=== PATIENT | male | born 1985 | race Caucasian/White ===

== ENCOUNTER 2018-01-11 06:31 | Inpatient (IN) | END 2018-01-13 10:40 | disposition left against medical advice (07) | DRG 975 ==

== ENCOUNTER 2018-05-08 06:24 | Observation (INO) | payer OTHER ==
[~2018-05-08] VITALS: Ht 188 cm; Wt 61.4 kg
[2018-05-08] MEDS ORDERED: CEFTRIAXONE 1 GM/50 ML (PMX) 50 ML IVPB STA (06:26)
[2018-05-08 06:36] VITALS: Ht 188 cm; Wt 61.4 kg
[2018-05-08] MEDS ORDERED: ONDANSETRON 4 MG INJ IV STA (07:00)
[2018-05-08] MEDS ORDERED: SODIUM CHLORIDE 0.9% 1L BAG IV* STA (07:00)
[2018-05-08] MEDS ORDERED: ELVI1TAB3 PO (07:02)
[2018-05-08] MEDS ORDERED: KETOROLAC 30 MG INJ IV STA (07:28)
[2018-05-08] MEDS ORDERED: POTASSIUM CHLORIDE (SR) 20 MEQ TAB PO STA (07:44)
[2018-05-08] MEDS ORDERED: ONDANSETRON 4 MG INJ IV PRN ×2 (09:00→11:00)
--- NOTE | 2018-05-08 09:40 | ERD ---
ER Documentation Chief Complaint Chief Complaint flu like symptoms x 4 days with n/v/d HPI Patient is a 33-year-old male with AIDS and liver failure who presents saying that he is having flulike symptoms. He was brought in by ambulance. He says that he is a hospice patient. He has had vomiting and diarrhea for the past 4 days. He had fevers of 103 at his [place] [facility]. He has had no treatment as of yet. He did not get a flu shot this year. He says that he had a cough and "can't piss". ROS All systems reviewed and are negative except as per history of present illness. Medications Home Meds Reported Medications Elviteg/Fe/Emtric/Tenofo Ala (Genvoya Tablet) 1 Each Tablet, 1 TAB PO DAILY 05/08/18 Allergies Allergies: Coded Allergies: acetaminophen (Verified Allergy, Unknown, 05/08/18) hydrocodone (Verified Allergy, Unknown, 05/08/18) PMhx/Soc History of Surgery: No Anesthesia Reaction: No Hx Neurological Disorder: Yes (SEIZURE.) Hx Respiratory Disorders: No Hx Cardiac Disorders: Yes (ENDOCARDITIS.) Hx Psychiatric Problems: No Hx Miscellaneous Medical Probl: Yes (HIV AIDS, liver failure) Hx Alcohol Use: Yes (occasional) Hx Substance Use: Yes (MARIJUANA AND METHADONE; last used heroin x months ago) Hx Tobacco Use: Yes (2 PACKS /DAY) Smoking Status: Current every day smoker FmHx Family History: No diabetes Physical Exam Vitals Vital Signs Date Temp Pulse Resp B/P (MAP) Pulse Ox O2 O2 Flow FiO2 Time Delivery Rate 05/08/18 76 20 107/83 100 Room Air 08:40 (91) 05/08/18 87 17 90/59 (69) 100 Room Air 07:21 05/08/18 97.5 84 17 114/86 100 06:36 (95) Physical Exam Const: Chronically ill with cachexia Head: Atraumatic Eyes: Normal Conjunctiva ENT: Normal External Ears, Nose and Mouth. Neck: Full range of motion. No meningismus. Resp: Clear to auscultation bilaterally Cardio: Regular rate and rhythm, no murmurs Abd: Soft, non tender, non distended. Normal bowel sounds Skin: No petechiae or rashes Back: No midline or flank tenderness Ext: No cyanosis, or edema Neur: Awake and alert Psych: Normal Mood and Affect Result Diagram: 05/08/18 0645 05/08/18 0645 Results 24 hrs Laboratory Tests Test 05/08/18 06:45 05/08/18 06:46 05/08/18 08:40 White Blood Count 2.1 10^3/ul Red Blood Count 4.00 10^6/ul Hemoglobin 10.3 g/dl Hematocrit 32.4 % Mean Corpuscular Volume 81.0 fl Mean Corpuscular Hemoglobin 25.8 pg Mean Corpuscular Hemoglobin Concent 31.8 g/dl Red Cell Distribution Width 15.5 % Platelet Count 233 10^3/UL Mean Platelet Volume 9.7 fl Immature Granulocytes % 1.400 % Neutrophils % % Segmented Neutrophils % (Manual) 25 % Band Neutrophils % (Manual) 21 % Lymphocytes % (Manual) 28 % Monocytes % (Manual) 18 % Eosinophils % % Metamyelocytes % (manual) 4 % Myelocytes % (Manual) 1 % Promyelocytes % (Manual) 1 % Plasma Cells % (manual) 2 % Nucleated Red Blood Cells % 1 % Immature Granulocytes # 0.030 10^3/ul Neutrophils # 10^3/ul Neutrophils # (Manual) 0.5 10^3/ul Band Neutrophils # 0.4 10^3/ul Lymphocytes (Manual) 0.5 10^3/ul Monocytes # (Manual) 0.3 10^3/ul Eosinophils # 10^3/ul Metamyelocytes # 0.0 10^3/ul Myelocytes # 0.0 10^3/ul Promyelocytes # 0.0 10^3/ul Plasma Cells # (manual) 0.0 10^3/ul Toxic Granulation 1+ Platelet Estimate NORMAL Giant Platelets 3 % Polychromasia 3+ Poikilocytosis 3+ Anisocytosis 1+ Microcytosis 1+ Ovalocytes 1+ Prothrombin Time 14.1 Sec Prothrombin Time Ratio 1.1 INR International Normalized Ratio 1.08 Activated Partial Thromboplast Time 29.7 Sec Sodium Level 137 mmol/L Potassium Level 3.4 mmol/L Chloride Level 92 mmol/L Carbon Dioxide Level 32 mmol/L Anion Gap 13 Blood Urea Nitrogen 33 mg/dl Creatinine 0.77 mg/dl Est Glomerular Filtrat Rate mL/min > 60 mL/min Glucose Level 147 mg/dl Calcium Level 10.2 mg/dl Total Bilirubin 0.7 mg/dl Direct Bilirubin 0.00 mg/dl Indirect Bilirubin 0.7 mg/dl Aspartate Amino Transf (AST/SGOT) 49 IU/L Alanine Aminotransferase (ALT/SGPT) 20 IU/L Alkaline Phosphatase 159 IU/L Troponin I < 0.012 ng/ml Total Protein 9.1 g/dl Albumin 4.0 g/dl Globulin 5.10 g/dl Albumin/Globulin Ratio 0.78 POC Venous Lactate 2.2 mmol/L 1.6 mmol/L Current Medications Medications Dose Sig/Nilesh Start Time Status Last (Trade) Ordered Route PRN Stop Time Admin Dose Reason Admin Ceftriaxone 50 ml @ ONCE STAT 05/08/18 DC 05/08/18 Sodium 100 mls/hr IVPB 06:26 05/08/18 07:16 06:55 Sodium 1,840 ml BOLUS OVER 2 05/08/18 DC 05/08/18 Chloride HOURS STAT 07:00 05/08/18 07:17 (NS) IV* 07:01 Ondansetron 4 mg ONCE STAT 05/08/18 DC 05/08/18 HCl (Zofran IV 07:00 05/08/18 07:16 Inj) 07:01 Ketorolac 30 mg ONCE STAT 05/08/18 DC 05/08/18 Tromethamine IV 07:28 05/08/18 07:34 (Toradol) 07:29 Potassium 40 meq ONCE STAT 05/08/18 DC 05/08/18 Chloride PO 07:44 05/08/18 07:58 (Klor-Con 20) 07:47 Ondansetron 4 mg BRIDGE ORDER 05/08/18 HCl (Zofran PRN IV 09:00 05/09/18 Inj) NAUSEA AND/OR 08:59 VOMITING Procedures/MDM CT abdomen and pelvis is pending at this time. Chest x-ray shows no pneumonia per radiology. Patient is a 33-year-old male who has intractable nausea, vomiting, and diarrhea. He was given 30 mm/kg fluid bolus and was given ceftriaxone IV empirically. However at this point I see no signs of bacterial infection. His lactic acid is 2.2 but I doubt true sepsis at this time and I believe the lactic acid could be related to dehydration. The patient will be admitted to the care of Dr. Tijerina. Departure Diagnosis: Primary Impression: Nausea and vomiting Vomiting type: unspecified Vomiting Intractability: intractable Qualified Codes: R11.2 - Nausea with vomiting, unspecified Condition: KELLY Garcia MD May 08, 2018 09:40
[2018-05-08] MEDS ORDERED: NACL 0.9% 3 ML SYG IV SCH (11:00)
[2018-05-08] MEDS: SOD CHLORIDE 0.9% 1,000 ML IV SCH ×3 (11:21→23:09)
--- NOTE | 2018-05-08 12:17 | HP ---
Date/Time of Note Date/Time of Note DATE: 05/08/18 TIME: 12:10 Assessment/Plan VTE Prophylaxis SCD applied (from Nsg): Yes Pharmacological prophylaxis: NA/contraindicated Pharm contraindication: anticoag not tolerated Lines/Catheters IV Catheter Type (from Nrsg): Saline Lock Assessment/Plan Hospital Course SUBJECTIVE: Lying in bed, no abdominal pain, no nausea or vomiting. Asking for food. OBJECTIVE: Vital signs-see below PHYSICAL EXAM: Constitutional: Cachectic, frail looking 33-year-old male, lying in bed, no acute distress. Psych: Anxious. no complaints Head: atraumatic, normocephalic Eyes: nl conjunctiva, nl sclera ENMT: mucosa pink and moist, nl external ears & nose Neck: non-tender, supple Respiratory: + Rhonchi bilaterally. normal air movement Cardiovascular: nl pulses, regular rate and rhythm Gastrointestinal: non-tender, soft, bowel sounds active in all 4 quadrants. Musculoskeletal/extremities: + Muscle wasting. Nl extremities to inspection, motor strength equal bilaterally, no focal deficit. Normal pulses,no cyanosis, no edema. Neurological: Anxious looking. Alert oriented 3,nl speech, nl strength Skin: nl turgor ASSESSMENT/PLAN: Very unfortunate 33-year-old male with AIDS, endocarditis(treated recently), substance abuse, here with intractable nausea, vomiting, diarrhea. 1. Intractable vomiting/diarrhea, likely AIDS defining illness. -CT abdomen/pelvis with no acute obstruction or inflammatory conditions. -Stool specimen to rule out C. difficile=>-Empiric Flagyl -Supportive care with fluid hydration, [id number] Reglan, PRN Zofran,H2B, Lactobacillus for colon health. 2. Recurrent Pneumonia in HIV infected patient -Repeat chest x-ray with no significant interval changes. -Start patient on Levaquin 750 mg daily, added Bactrim for PCP prophylaxis. -PRN bronchodilators 3. End- Stage AIDS -Resume HAART regimen -ID consult -Patient interested in hospice as he was previously on hospice. I will request social worker masters. At this time, he wants to address full code. 4. Polysubstance abuse -SW eval 5. Chronic anemia -Stable. -Monitor 6. Tobacco abuse -Nicotine patch DVT prophylaxis: SCDs/ambulation PUD prophylaxis: Pepcid CODE STATUS: Full code Diet: Clear diet and advance as tolerated. Rest of the management depend on hospital course. Approximately 60 minutes was spent on this history and physical. Patient was seen in collaboration with Dr. Chase. Result Diagram: 05/08/18 0645 05/08/18 0645 Results 24hrs Laboratory Tests Test 05/08/18 06:45 05/08/18 06:46 05/08/18 08:40 05/08/18 11:11 White Blood Count 2.1 L Red Blood Count 4.00 #L Hemoglobin 10.3 #L Hematocrit 32.4 #L Mean Corpuscular Volume 81.0 L Mean Corpuscular 25.8 L Hemoglobin Mean Corpuscular 31.8 L Hemoglobin Concent Red Cell Distribution 15.5 H Width Platelet Count 233 # Mean Platelet Volume 9.7 Immature Granulocytes % 1.400 H Neutrophils % Segmented Neutrophils 25 L % (Manual) Band Neutrophils % 21 H (Manual) Lymphocytes % (Manual) 28 Monocytes % (Manual) 18 H Eosinophils % Metamyelocytes % 4 H (manual) Myelocytes % (Manual) 1 H Promyelocytes % (Manual) 1 H Plasma Cells % (manual) 2 Nucleated Red Blood 1 H Cells % Immature Granulocytes # 0.030 Neutrophils # Neutrophils # (Manual) 0.5 L Band Neutrophils # 0.4 Lymphocytes (Manual) 0.5 L Monocytes # (Manual) 0.3 Eosinophils # Metamyelocytes # 0.0 Myelocytes # 0.0 Promyelocytes # 0.0 Plasma Cells # (manual) 0.0 Toxic Granulation 1+ Platelet Estimate NORMAL Giant Platelets 3 H Polychromasia 3+ Poikilocytosis 3+ Anisocytosis 1+ Microcytosis 1+ Ovalocytes 1+ Prothrombin Time 14.1 Prothrombin Time Ratio 1.1 INR International 1.08 Normalized Ratio Activated 29.7 Partial Thromboplast Time Sodium Level 137 Potassium Level 3.4 L Chloride Level 92 L Carbon Dioxide Level 32 H Anion Gap 13 Blood Urea Nitrogen 33 H Creatinine 0.77 Est Glomerular Filtrat > 60 Rate mL/min Glucose Level 147 Calcium Level 10.2 Total Bilirubin 0.7 Direct Bilirubin 0.00 Indirect Bilirubin 0.7 Aspartate Amino 49 H Transf (AST/SGOT) Alanine 20 Aminotransferase (ALT/SG PT) Alkaline Phosphatase 159 H Troponin I < 0.012 Total Protein 9.1 H Albumin 4.0 Globulin 5.10 H Albumin/Globulin Ratio 0.78 POC Venous Lactate 2.2 *H 1.6 Lactic Acid Level 1.3 HPI/ROS Admit Date/Time Admit Date/Time May 08, 2018 at 08:37 Hx of Present Illness 33-year-old male with a history of AIDS, endocarditis, IV drug abuse, substance abuse, nicotine abuse, pneumonia/opportunistic infections, who was discharged AGAINST MEDICAL ADVICE in December 2017, presented with intractable nausea/vomiting/nonbloody diarrhea times 4-day duration. He also reported subjective fevers. Patient denied abdominal pain, loss of consciousness, dizziness, chest pain, palpitation, speech difficulties, vision changes, cough, dysuria, chills or other constitutional symptoms. In the emergency room,Initial labs showed white count 2100, hemoglobin 10.3, hematocrit 32.4, potassium 3.4, AST 49, alkaline phosphatase 159. Normal lactate level. Vital signs temperature 97.5, pulse rate 84, respiratory rate 17, blood pressure 114/86, oxygen saturation 100% on room air. In the ER, patient was given about 2 L normal saline fluid bolus, IV ceftriaxone and Zofran with some improvement in his symptoms. He was also given potassium 40 M EQ in the ER. ROS A 12 point review of system was assessed and is negative other than what is mentioned in the HPI. PMH/Family/Social Past Medical History See HPI Medications Current Medications Ondansetron HCl (Zofran Inj) 4 mg BRIDGE ORDER PRN IV NAUSEA AND/OR VOMITING; Start 05/08/18 at 09:00; Stop 05/09/18 at 08:59 Sodium Chloride 1,000 ml @ 125 mls/hr Q8H IV Last administered on 05/08/18at 11:21; Admin Dose 125 MLS/HR; Start 05/08/18 at 10:41 IV Flush (NS 3 ml) 3 ml PER PROTOCOL IV ; Start 05/08/18 at 11:00 Ondansetron HCl (Zofran Inj) 4 mg Q6H PRN IV NAUSEA AND/OR VOMITING; Start 05/08/18 at 11:00 Famotidine (Pepcid Iv) 20 mg Q12 IV ; Start 05/08/18 at 21:00 Ciprofloxacin/ Dextrose 200 ml @ 200 mls/hr Q12 IVPB ; Start 05/08/18 at 21:00 Metronidazole 100 ml @ 100 mls/hr Q8 IVPB ; Start 05/08/18 at 14:00 Metoclopramide HCl (Reglan) 10 mg Q6 IV ; Start 05/08/18 at 12:00 Elvitegravir/ Cobicis/Emtricit/ Tenof (Genvoya Tablet) 1 each DAILY PO ; Start 05/09/18 at 09:00 Coded Allergies: acetaminophen (Verified Allergy, Unknown, 05/08/18) hydrocodone (Verified Allergy, Unknown, 05/08/18) Past Surgical History Noncontributory Social History Current every day tobacco abuse, substance abuse Smoking Status: Current every day smoker Exam/Review of Systems Vital Signs Vitals Vital Signs Date Temp Pulse Resp B/P (MAP) Pulse Ox O2 O2 Flow FiO2 Time Delivery Rate 05/08/18 74 18 108/83 100 Room Air 09:40 (91) 05/08/18 97.5 06:36 JEAN-CLAUDE SKINNER NP May 08, 2018 12:17
[2018-05-08] MEDS ORDERED: ALBUTEROL/IPRATROPIUM (NEB) 3 ML AMP HHN PRN (12:30)
[2018-05-08] MEDS: METOCLOPRAMIDE 10 MG INJ IV SCH ×3 (13:09→23:05)
[2018-05-08] MEDS: LACTOBACILLUS RHAMNOSUS CAP PO SCH ×2 (13:10→21:11)
[2018-05-08] MEDS: LEVOFLOXACIN 750MG/D5W (PMX) 150 ML IVPB SCH (13:10)
[2018-05-08] MEDS: TRIMETHOPRIM/SULFAMETHOX (DS) TAB PO SCH ×2 (13:10→21:11)
--- NOTE | 2018-05-08 14:07 | CONS ---
DATE OF ADMISSION: 05/08/2018 DATE OF CONSULTATION: 05/08/2018 TYPE OF CONSULTATION: Infectious disease. REASON FOR CONSULTATION: Antibiotic management. HISTORY OF PRESENT ILLNESS: Feliciano Tinsley is a 33-year-old male who comes in with flu-like symptoms for 4 days with nausea, vomiting and diarrhea. The patient presents with flu-like illness. He says that he is a hospice patient. He had nausea, vomiting, diarrhea for the past 4 days with a fever of 103 degrees. He has had no treatment yet. He did not get a flu shot this year and he said that he h ad a cough and could not urinate. Past problems include: 1. AIDS. 2. Liver failure. 3. Seizure disorder. 4. Endocarditis. 5. Abuse of methadone and marijuana. Last used of heroin a number of months ago. 6. He is a smoker, smokes 2 packs per day. PAST MEDICAL HISTORY: Operations as outlined. FAMILY HISTORY: Noncontributory. SOCIAL HISTORY: He smokes. He abuses drugs and uses alcohol on occasion. ALLERGIES: 1. ACETAMINOPHEN. 2. HYDROCODONE. MEDICATIONS: Per chart. REVIEW OF SYSTEMS: Noncontributory. PHYSICAL EXAMINATION: GENERAL: The patient is a chronically ill, cachectic male, who is awake, responsive, in no acute dis tress. VITAL SIGNS: Stable. He is afebrile. SKIN: Without generalized rash. HEENT: Within normal limits. NECK: Supple. LYMPH NODES: None palpable. CHEST: Decreased breath sounds at the bases. HEART: Without murmur or gallop. ABDOMEN: Soft, nontender without organosplenomegaly or masses. EXTREMITIES: Without cyanosis, clubbing or edema. RECTAL AND GENITAL: Deferred. NEUROLOGIC: No focal neurological abnormalities. ANCILLARY LABORATORY DATA: White count 2.1, H and H of 10.3 and 32.4, platelet count 223,000. BUN a nd creatinine is 33/0.77. His white count is 2.1. He has 25 polys, 21 bands, so he is not absolutel y neutropenic. The patient was started on ceftriaxone, given Toradol. Chest x-ray shows no evidence of pneumonia. The patient presented with intractable nausea, vomiting and diarrhea and was given ceftriaxone. Lact ic acid was 2.2. The patient is very dehydrated. Surprisingly, influenza A and B are negative. A C T scan of the abdomen and pelvis showed multiple cavitary nodular opacities with underlying airspace disease within the lung bases, slightly improved since prior exam. Findings are worrisome for atypic al infection versus septic emboli, limited evaluation secondary to lack of intra-abdominal fat and IV and oral contrast. No gross evidence of obstruction. Stool-filled loops of large bowel suggestive of constipation without splenomegaly. No gross evidence of free air or free fluid. Mild anasarca. The patient is on Genvoya for his HIV. He is on Levaquin and metronidazole as well and I will consid er treatment for atypical Mycobacterium since he has these cavitary lesions as well as a history of H IV. I would like to know what his previous CD4 count was since he was admitted here previously on with Staphylococcus aureus bacteremia and endocarditis. These nodular densities could be re lated to his Staphylococcus aureus bacteremia and we also have to consider whether he needs further a ntibiotic therapy. The Staph aureus was sensitive to Cipro and cefazolin, so it should be sensitive to ceftriaxone as well, but it is sensitive to Cipro which he is on Levaquin at this point, which is similar. I will dictate my findings to the hospitalist. Dictated By: JOSUE BLUNT MD, JD/ARIELLE Conf#: [id number] DID#: [id number] CC: GEORGE OLIVAREZ MD;*End*
[2018-05-08 14:50] VITALS: BP 104/71; PULSE 83; RESP 17
[2018-05-08] MEDS: metroNIDAZOLE 500 MG/NS (PMX) 100 ML IVPB SCH ×2 (14:59→21:12)
[2018-05-08] MEDS ORDERED: OXYCODONE/ACETAMINOPHEN (5/325) TAB PO PRN (18:00)
[2018-05-08] MEDS ORDERED: OXYCODONE/ACETAMINOPHEN (10/325) TAB PO PRN (18:00)
[2018-05-08] MEDS: morphine SULFATE/PF (2 MG/2 ML) SYG IV PRN ×2 (18:24→23:05)
[2018-05-08 20:00] VITALS: BP 99/68; PULSE 63; RESP 18
[2018-05-08] MEDS ORDERED: CIPROFLOXACIN 400MG/D5W 200 ML IVPB SCH (21:00)
[2018-05-08] MEDS: FAMOTIDINE 20 MG INJ IV SCH (21:12)
[2018-05-09 02:00] VITALS: BP 98/60; PULSE 84; RESP 18
[2018-05-09] MEDS: morphine SULFATE/PF (2 MG/2 ML) SYG IV PRN ×3 (03:16→12:46)
[2018-05-09] MEDS: METOCLOPRAMIDE 10 MG INJ IV SCH ×4 (05:18→23:48)
[2018-05-09] MEDS: metroNIDAZOLE 500 MG/NS (PMX) 100 ML IVPB SCH ×3 (05:18→21:01)
[2018-05-09 07:48] VITALS: BP 106/60; PULSE 91; RESP 18
[2018-05-09] MEDS: FAMOTIDINE 20 MG INJ IV SCH ×2 (08:41→21:02)
[2018-05-09] MEDS: LACTOBACILLUS RHAMNOSUS CAP PO SCH ×2 (08:41→21:02)
[2018-05-09] MEDS: TRIMETHOPRIM/SULFAMETHOX (DS) TAB PO SCH (08:42)
[2018-05-09] MEDS: SOD CHLORIDE 0.9% 1,000 ML IV SCH ×3 (08:42→17:56)
[2018-05-09] MEDS ORDERED: INFLUENZA VIRUS VACCINE 0.5 ML (DISPENSING) IM* ONE (09:00)
[2018-05-09] MEDS ORDERED: ELVITEG/COBI/EMTRIC/TENOFO ALA 1 EACH TABLET PO SCH (09:00)
[2018-05-09] MEDS: NICOTINE (21 MG/24 HR) PATCH TRANSDERM SCH (11:38)
[2018-05-09] MEDS: LEVOFLOXACIN 750MG/D5W (PMX) 150 ML IVPB SCH (12:46)
[2018-05-09] MEDS ORDERED: NYSTATIN SUSP 5 ML CUP PO SCH (13:00)
--- NOTE | 2018-05-09 13:26 | CONS ---
Date/Time of Note Date/Time of Note DATE: 05/09/18 TIME: 13:26 Assessment/Plan Assessment/Plan Hospital Course The patient is awake looks comfortable complaining of pain no fevers overnight WBC 1.5 platelets 212 BUN 30 creatinine 0.74 Microbiology blood culture and influenza swab negative Antimicrobials: Flagyl Levaquin Bactrim Physical examination: This is a cachectic well-developed middle-aged man who is alert in no distress. Head atraumatic normocephalic sclera nonicteric vehicle mucosa dry patient has white rash on his tongue neck is supple chest rise symmetrical breath sounds diminished to bases heart S1-S2 abdomen soft bowel sounds present Assessment: 1. AIDS, patient has not been taking HIV medications and developed resistant to majority of the agents 2. Oral thrush/[place] esophagitis 3. History of tricuspid valve vegetations and bacteremia 4. IV drug abuse 5. Pancytopenia 6. Status post intractable nausea and vomiting 7. Cavitary lung disease, radiographically improved since prior exam Plan: Change Bactrim to once daily, add fluconazole and oral nystatin, add prophylactic acyclovir, continue Levaquin and Flagyl, dc Genvoya as patient is resistant to it and has not been on any HIV coverage for a long time. Patient is under hospice care now. Continue supportive care and pain management Result Diagram: 05/09/18 0514 05/09/18 0514 Results 24hrs Laboratory Tests Test 05/09/18 00:01 05/09/18 05:14 Urine Color JOSE LUIS Urine Clarity CLOUDY A Urine pH 5.0 Urine Specific Stella 1.032 H Urine Ketones NEGATIVE Urine Nitrite NEGATIVE Urine Bilirubin NEGATIVE Urine Urobilinogen NEGATIVE Urine Leukocyte Esterase NEGATIVE Urine Microscopic RBC 1 Urine Microscopic WBC 4 Urine Mucus MANY A Urine Hemoglobin NEGATIVE Urine Glucose NEGATIVE Urine Total Protein 3+ H White Blood Count 1.5 #L Red Blood Count 3.16 #L Hemoglobin 8.3 L Hematocrit 25.4 #L Mean Corpuscular Volume 80.4 L Mean Corpuscular Hemoglobin 26.3 L Mean Corpuscular Hemoglobin Concent 32.7 Red Cell Distribution Width 15.6 H Platelet Count 212 Mean Platelet Volume 11.6 H Immature Granulocytes % 0.700 H Neutrophils % Segmented Neutrophils % (Manual) 34 L Band Neutrophils % (Manual) 15 H Lymphocytes % Lymphocytes % (Manual) 39 Monocytes % Monocytes % (Manual) 11 Eosinophils % Basophils % Basophils % (Manual) 1 Nucleated Red Blood Cells % 1 H Immature Granulocytes # 0.010 Neutrophils # Neutrophils # (Manual) 0.5 L Band Neutrophils # 0.2 Lymphocytes (Manual) 0.5 L Lymphocytes # Monocytes # Monocytes # (Manual) 0.1 L Eosinophils # Basophils # Basophils # (Manual) 0.0 Nucleated Red Blood Cells # Platelet Estimate NORMAL Giant Platelets 7 H Polychromasia 2+ Poikilocytosis 3+ Anisocytosis 1+ Microcytosis 1+ Ovalocytes 2+ Sodium Level 135 Potassium Level 3.3 L Chloride Level 97 Carbon Dioxide Level 26 Anion Gap 12 Blood Urea Nitrogen 30 H Creatinine 0.74 Est Glomerular Filtrat Rate mL/min > 60 Glucose Level 95 # Calcium Level 8.6 Phosphorus Level 2.8 Magnesium Level 1.6 L Consultation Date/Type/Reason Admit Date/Time May 08, 2018 at 08:37 Initial Consult Date Type of Consult id Exam/Review of Systems Vital Signs Vitals Vital Signs Date Temp Pulse Resp B/P (MAP) Pulse Ox O2 O2 Flow FiO2 Time Delivery Rate 05/09/18 98.3 91 18 106/60 96 07:48 (75) 05/08/18 Room Air 09:40 Intake and Output 05/08/18 05/08/18 05/09/18 1515:00 23:00 07:00 IntakeIntake Total 1350 ml 1380 ml 1150 ml BalanceBalance 1350 ml 1380 ml 1150 ml Medications Medications Current Medications Sodium Chloride 1,000 ml @ 125 mls/hr Q8H IV Last administered on 05/09/18at 08:42; Admin Dose 125 MLS/HR; Start 05/08/18 at 10:41 IV Flush (NS 3 ml) 3 ml PER PROTOCOL IV ; Start 05/08/18 at 11:00 Ondansetron HCl (Zofran Inj) 4 mg Q6H PRN IV NAUSEA AND/OR VOMITING; Start 05/08/18 at 11:00 Famotidine (Pepcid Iv) 20 mg Q12 IV Last administered on 05/09/18at 08:41; Admin Dose 20 MG; Start 05/08/18 at 21:00 Metronidazole 100 ml @ 100 mls/hr Q8 IVPB Last administered on 05/09/18at 05:18; Admin Dose 100 MLS/HR; Start 05/08/18 at 14:00 Metoclopramide HCl (Reglan) 10 mg Q6 IV Last administered on 05/09/18 11:38; Admin Dose 10 MG; Start 05/08/18 at 12:00 Trimethoprim/ Sulfamethoxazole (Bactrim (Ds)) 1 tab BID PO Last administered on 05/09/18 08:42; Admin Dose 1 TAB; Start 05/08/18 at 12:00 Levofloxacin/ Dextrose 150 ml @ 100 mls/hr Q24H IVPB Last administered on 05/09/18 12:46; Admin Dose 100 MLS/HR; Start 05/08/18 at 12:30 Albuterol/ Ipratropium (Duoneb) 3 ml Q4H RESP THERAPY PRN HHN SHORTNESS OF BREATH; Start 05/08/18 at 12:30 Lactobacillus Acidophilus/ Rhamnosus (Culturelle) 1 cap BID PO Last administered on 05/09/18 08:41; Admin Dose 1 CAP; Start 05/08/18 at 12:30 Morphine Sulfate (morphine SULFATE (PF)) 2 mg Q4H PRN IV SEVERE PAIN LEVEL 7-10 Last administered on 05/09/18 12:46; Admin Dose 2 MG; Start 05/08/18 at 18:00 Nicotine (Nicoderm 21 Mg/ 24hr) 1 patch DAILY TRANSDERM Last administered on 05/09/18 11:38; Admin Dose 1 PATCH; Start 05/09/18 at 10:00 Nystatin (Nystatin Susp) 5 ml Q4 PO ; Start 05/09/18 at 13:00 LYNN BALDWIN NP May 09, 2018 13:26
--- NOTE | 2018-05-09 13:52 | PN ---
Date/Time of Note Date/Time of Note DATE: 05/09/18 TIME: 13:49 Assessment/Plan VTE Prophylaxis Risk score (from Ns)>0 risk: 3 SCD applied (from Ns): Yes Pharmacological prophylaxis: NA/contraindicated Pharm contraindication: anticoag not tolerated Lines/Catheters IV Catheter Type (from [facility]): Peripheral IV Assessment/Plan Hospital Course SUBJECTIVE: No acute distress. OBJECTIVE: Vital signs-see below PHYSICAL EXAM: Constitutional: Cachectic, frail looking 33-year-old male, lying in bed, no acute distress. Psych: Anxious. no complaints Head: atraumatic, normocephalic Eyes: nl conjunctiva, nl sclera ENMT: mucosa pink and moist, nl external ears & nose Neck: non-tender, supple Respiratory: + Rhonchi bilaterally. normal air movement Cardiovascular: nl pulses, regular rate and rhythm Gastrointestinal: non-tender, soft, bowel sounds active in all 4 quadrants. Musculoskeletal/extremities: + Muscle wasting. Nl extremities to inspection, motor strength equal bilaterally, no focal deficit. Normal pulses,no cyanosis, no edema. Neurological: Anxious looking. Alert oriented 3,nl speech, nl strength Skin: nl turgor ASSESSMENT/PLAN: Very unfortunate 33-year-old male with AIDS, endocarditis(treated recently), substance abuse, here with intractable nausea, vomiting, diarrhea. 1. Intractable vomiting/diarrhea, likely AIDS defining illness. -CT abdomen/pelvis with no acute obstruction or inflammatory conditions. -Symptoms resolved -Pending stool C. difficile study =>-on empiric Flagyl -Supportive care with fluid hydration, [id number] Reglan, PRN Zofran,H2B,Lactobacillus for colon health. -Advance diet. 2. Recurrent Pneumonia in HIV infected patient -Continue Levaquin 750 mg daily -on Bactrim for PCP prophylaxis. -PRN bronchodilators 3. End- Stage AIDS -ID recommendations noted. -Off treatment and patient opted for hospice focus care. 4. Polysubstance/Meth abuse -SW eval 5. Chronic anemia -Stable. -Monitor 6. Tobacco abuse -Nicotine patch DVT prophylaxis: SCDs/ambulation PUD prophylaxis: Pepcid CODE STATUS: Full code Diet: Regular as tolerated Disposition: Pending hospice eval and disposition per hospice recommendations. Patient was seen in collaboration with Dr. Chase. Result Diagram: 05/09/18 0514 05/09/18 0514 Results 24hrs Laboratory Tests Test 05/09/18 00:01 05/09/18 05:14 Urine Color JOSE LUIS Urine Clarity CLOUDY A Urine pH 5.0 Urine Specific Robbins 1.032 H Urine Ketones NEGATIVE Urine Nitrite NEGATIVE Urine Bilirubin NEGATIVE Urine Urobilinogen NEGATIVE Urine Leukocyte Esterase NEGATIVE Urine Microscopic RBC 1 Urine Microscopic WBC 4 Urine Mucus MANY A Urine Hemoglobin NEGATIVE Urine Glucose NEGATIVE Urine Total Protein 3+ H White Blood Count 1.5 #L Red Blood Count 3.16 #L Hemoglobin 8.3 L Hematocrit 25.4 #L Mean Corpuscular Volume 80.4 L Mean Corpuscular Hemoglobin 26.3 L Mean Corpuscular Hemoglobin Concent 32.7 Red Cell Distribution Width 15.6 H Platelet Count 212 Mean Platelet Volume 11.6 H Immature Granulocytes % 0.700 H Neutrophils % Segmented Neutrophils % (Manual) 34 L Band Neutrophils % (Manual) 15 H Lymphocytes % Lymphocytes % (Manual) 39 Monocytes % Monocytes % (Manual) 11 Eosinophils % Basophils % Basophils % (Manual) 1 Nucleated Red Blood Cells % 1 H Immature Granulocytes # 0.010 Neutrophils # Neutrophils # (Manual) 0.5 L Band Neutrophils # 0.2 Lymphocytes (Manual) 0.5 L Lymphocytes # Monocytes # Monocytes # (Manual) 0.1 L Eosinophils # Basophils # Basophils # (Manual) 0.0 Nucleated Red Blood Cells # Platelet Estimate NORMAL Giant Platelets 7 H Polychromasia 2+ Poikilocytosis 3+ Anisocytosis 1+ Microcytosis 1+ Ovalocytes 2+ Sodium Level 135 Potassium Level 3.3 L Chloride Level 97 Carbon Dioxide Level 26 Anion Gap 12 Blood Urea Nitrogen 30 H Creatinine 0.74 Est Glomerular Filtrat Rate mL/min > 60 Glucose Level 95 # Calcium Level 8.6 Phosphorus Level 2.8 Magnesium Level 1.6 L Exam/Review of Systems Vital Signs Vitals Vital Signs Date Temp Pulse Resp B/P (MAP) Pulse Ox O2 O2 Flow FiO2 Time Delivery Rate 05/09/18 98.3 91 18 106/60 96 07:48 (75) 05/08/18 Room Air 09:40 Intake and Output 05/08/18 05/08/18 05/09/18 1515:00 23:00 07:00 IntakeIntake Total 1350 ml 1380 ml 1150 ml BalanceBalance 1350 ml 1380 ml 1150 ml Medications Medications Current Medications Sodium Chloride 1,000 ml @ 125 mls/hr Q8H IV Last administered on 05/09/18 08:42; Admin Dose 125 MLS/HR; Start 05/08/18 at 10:41 IV Flush (NS 3 ml) 3 ml PER PROTOCOL IV ; Start 05/08/18 at 11:00 Ondansetron HCl (Zofran Inj) 4 mg Q6H PRN IV NAUSEA AND/OR VOMITING; Start 05/08/18 at 11:00 Famotidine (Pepcid Iv) 20 mg Q12 IV Last administered on 05/09/18 08:41; Admin Dose 20 MG; Start 05/08/18 at 21:00 Metronidazole 100 ml @ 100 mls/hr Q8 IVPB Last administered on 05/09/18 05:18; Admin Dose 100 MLS/HR; Start 05/08/18 at 14:00 Metoclopramide HCl (Reglan) 10 mg Q6 IV Last administered on 05/09/18 11:38; Admin Dose 10 MG; Start 05/08/18 at 12:00 Levofloxacin/ Dextrose 150 ml @ 100 mls/hr Q24H IVPB Last administered on 05/09/18 12:46; Admin Dose 100 MLS/HR; Start 05/08/18 at 12:30 Albuterol/ Ipratropium (Duoneb) 3 ml Q4H RESP THERAPY PRN HHN SHORTNESS OF BREATH; Start 05/08/18 at 12:30 Lactobacillus Acidophilus/ Rhamnosus (Culturelle) 1 cap BID PO Last administ ered on 05/09/18 08:41; Admin Dose 1 CAP; Start 05/08/18 at 12:30 Morphine Sulfate (morphine SULFATE (PF)) 2 mg Q4H PRN IV SEVERE PAIN LEVEL 7-10 Last administered on 05/09/18 12:46; Admin Dose 2 MG; Start 05/08/18 at 18:00 Nicotine (Nicoderm 21 Mg/ 24hr) 1 patch DAILY TRANSDERM Last administered on 05/09/18 11:38; Admin Dose 1 PATCH; Start 05/09/18 at 10:00 Fluconazole/ Sodium Chloride 50 ml @ 50 mls/hr Q24H IVPB ; Start 05/09/18 at 15:00 Acyclovir (Zovirax) 400 mg BID PO ; Start 05/09/18 at 21:00 Trimethoprim/ Sulfamethoxazole (Bactrim (Ds)) 1 tab DAILY PO ; Start 05/10/18 at 09:00 Nystatin (Nystatin Susp) 5 ml QID PO ; Start 05/09/18 at 17:00 JEAN-CLAUDE SKINNER NP May 09, 2018 13:52
[2018-05-09] MEDS ORDERED: POTASSIUM CHLORIDE (SR) 20 MEQ TAB PO STA (14:26)
[2018-05-09 14:36] VITALS: BP 111/69; PULSE 91; RESP 18
[2018-05-09] MEDS ORDERED: FLUCONAZOLE 100 MG/50 ML (PMX) 50 ML IVPB SCH (15:00)
[2018-05-09] MEDS: HYDROmorphONE 2 MG/ML SYG IV PRN ×3 (15:00→23:48)
[2018-05-09] MEDS ORDERED: MAGNESIUM SULFATE 3 GM in DEXTROSE 5% 100 ML IVPB ONE (15:30)
[2018-05-09] MEDS: NYSTATIN SUSP 5 ML CUP PO SCH ×2 (17:40→21:02)
[2018-05-09 19:36] VITALS: BP 108/67; PULSE 97; RESP 18
[2018-05-09] MEDS: ACYCLOVIR 400 MG TAB PO SCH (21:02)
[2018-05-10] MEDS: SOD CHLORIDE 0.9% 1,000 ML IV SCH ×2 (01:12→10:41)
[2018-05-10 02:00] VITALS: BP 107/68; PULSE 89; RESP 18
[2018-05-10] MEDS: HYDROmorphONE 2 MG/ML SYG IV PRN ×3 (03:59→12:23)
[2018-05-10] MEDS: metroNIDAZOLE 500 MG/NS (PMX) 100 ML IVPB SCH (05:13)
[2018-05-10] MEDS: METOCLOPRAMIDE 10 MG INJ IV SCH ×2 (05:13→12:23)
[2018-05-10 07:29] VITALS: BP 129/68; PULSE 100; RESP 19
[2018-05-10] MEDS: ACYCLOVIR 400 MG TAB PO SCH (08:06)
[2018-05-10] MEDS: NYSTATIN SUSP 5 ML CUP PO SCH ×2 (08:06→12:23)
[2018-05-10] MEDS: FAMOTIDINE 20 MG INJ IV SCH (08:06)
[2018-05-10] MEDS: LACTOBACILLUS RHAMNOSUS CAP PO SCH (08:06)
[2018-05-10] MEDS: NICOTINE (21 MG/24 HR) PATCH TRANSDERM SCH (08:08)
--- NOTE | 2018-05-10 08:27 | PDOCDIS ---
Discharge Instructions CONDITION [id number] Patient Condition: [id number] Stable HOME CARE INSTRUCTIONS: [id number] Diet Instructions: [id number] Regular FOLLOW UP/APPOINTMENTS Follow-up Plan Discharge with hospice follow-up. JEAN-CLAUDE SKINNER NP May 10, 2018 08:27
[2018-05-10] MEDS ORDERED: FAMO-96 PO (08:31)
[2018-05-10] MEDS ORDERED: ONDA4TAB8 PO (08:31)
[2018-05-10] MEDS ORDERED: NYST1000 PO (08:31)
[2018-05-10] MEDS ORDERED: LACT1CAP28 PO (08:31)
[2018-05-10] MEDS ORDERED: SULF-182 PO (08:31)
[2018-05-10] MEDS ORDERED: ACYC400T2 PO (08:31)
[2018-05-10] MEDS ORDERED: METR500T PO (08:31)
[2018-05-10] MEDS ORDERED: TRIMETHOPRIM/SULFAMETHOX (DS) TAB PO SCH (09:00)
--- NOTE | 2018-05-10 11:27 | CONS ---
Date/Time of Note Date/Time of Note DATE: 05/10/18 TIME: 11:26 Assessment/Plan Assessment/Plan Hospital Course No acute changes overnight per report Stool for C. difficile came back negative Antimicrobials: Flagyl Levaquin Bactrim, fluconazole, acyclovir, oral nystatin Physical examination: This is a cachectic well-developed middle-aged man who is alert in no distress. Head atraumatic normocephalic sclera nonicteric vehicle mucosa dry patient has white rash on his tongue neck is supple chest rise symmetrical breath sounds diminished to bases heart S1-S2 abdomen soft bowel sounds present Assessment: 1. AIDS, patient has not been taking HIV medications and developed resistant to majority of the agents 2. Oral thrush/Dayami esophagitis 3. History of tricuspid valve vegetations and bacteremia 4. IV drug abuse 5. Pancytopenia 6. Status post intractable nausea and vomiting 7. Cavitary lung disease, radiographically improved since prior exam Plan: Remains stable, continue present care, prophylactic medications, pain management Result Diagram: 05/09/18 0514 05/09/18 0514 Consultation Date/Type/Reason Admit Date/Time May 08, 2018 at 08:37 Initial Consult Date Type of Consult id Exam/Review of Systems Vital Signs Vitals Vital Signs Date Temp Pulse Resp B/P (MAP) Pulse Ox O2 O2 Flow FiO2 Time Delivery Rate 05/10/18 98.2 100 19 129/68 99 Room Air 07:29 (88) Intake and Output 05/09/18 05/09/18 05/10/18 1515:00 23:00 07:00 IntakeIntake Total 1860 ml 962 ml 1470 ml OutputOutput Total 750 ml 1000 ml 300 ml BalanceBalance 1110 ml -38 ml 1170 ml Medications Medications Current Medications Sodium Chloride 1,000 ml @ 125 mls/hr Q8H IV Last administered on 05/10/18at 01:12; Admin Dose 125 MLS/HR; Start 05/08/18 at 10:41 IV Flush (NS 3 ml) 3 ml PER PROTOCOL IV ; Start 05/08/18 at 11:00 Ondansetron HCl (Zofran Inj) 4 mg Q6H PRN IV NAUSEA AND/OR VOMITING; Start 05/08/18 at 11:00 Famotidine (Pepcid Iv) 20 mg Q12 IV Last administered on 05/10/18 08:06; Admin Dose 20 MG; Start 05/08/18 at 21:00 Metronidazole 100 ml @ 100 mls/hr Q8 IVPB Last administered on 05/10/18 0 5:13; Admin Dose 100 MLS/HR; Start 05/08/18 at 14:00 Metoclopramide HCl (Reglan) 10 mg Q6 IV Last administered on 05/10/18 05:13; Admin Dose 10 MG; Start 05/08/18 at 12:00 Levofloxacin/ Dextrose 150 ml @ 100 mls/hr Q24H IVPB Last administered on 05/09/18 12:46; Admin Dose 100 MLS/HR; Start 05/08/18 at 12:30 Albuterol/ Ipratropium (Duoneb) 3 ml Q4H RESP THERAPY PRN HHN SHORTNESS OF BREATH; Start 05/08/18 at 12:30 Lactobacillus Acidophilus/ Rhamnosus (Culturelle) 1 cap BID PO Last administered on 05/10/18 08:06; Admin Dose 1 CAP; Start 05/08/18 at 12:30 Nicotine (Nicoderm 21 Mg/ 24hr) 1 patch DAILY TRANSDERM Last administered on 05/10/18 08:08; Admin Dose 1 PATCH; Start 05/09/18 at 10:00 Fluconazole/ Sodium Chloride 50 ml @ 50 mls/hr Q24H IVPB Last administered on 05/09/18 16:22; Admin Dose 50 MLS/HR; Start 05/09/18 at 15:00 Acyclovir (Zovirax) 400 mg BID PO Last administered on 05/10/18 08:06; Admin Dose 400 MG; Start 05/09/18 at 21:00 Trimethoprim/ Sulfamethoxazole (Bactrim (Ds)) 1 tab DAILY PO Last administered on 05/10/18 08:07; Admin Dose 1 TAB; Start 05/10/18 at 09:00 Nystatin (Nystatin Susp) 5 ml QID PO Last administered on 05/10/18 08:06; Admin Dose 5 ML; Start 05/09/18 at 17:00 Hydromorphone HCl (Dilaudid) 2 mg Q4H PRN IV SEVERE PAIN LEVEL 7-10 Last administered on 05/10/18 08:06; Admin Dose 2 MG; Start 05/09/18 at 14:00 LYNN BALDWIN NP May 10, 2018 11:27
[2018-05-10] MEDS ORDERED: LEVO750T25 PO (11:55)
[2018-05-10] MEDS ORDERED: GUAIFENESIN/DM 5ML CUP PO PRN (12:00)
[2018-05-10] MEDS: LEVOFLOXACIN 750MG/D5W (PMX) 150 ML IVPB SCH ×2 (12:22→12:30)
[2018-05-10] MEDS ORDERED: FLUC200T52 PO (14:56)
--- NOTE | 2018-05-10 15:00 | DS ---
Date/Time of Note Date/Time of Note DATE: 05/10/18 TIME: 14:58 Discharge Summary Admission/Discharge Info Admit Date/Time May 08, 2018 at 08:37 Discharge Date/Time Discharge Diagnosis SUBJECTIVE: No acute distress. OBJECTIVE: Vital signs-see below PHYSICAL EXAM: Constitutional: Cachectic, frail looking 33-year-old male, lying in bed, no acute distress. Psych: Anxious. no complaints Head: atraumatic, normocephalic Eyes: nl conjunctiva, nl sclera ENMT: mucosa pink and moist, nl external ears & nose Neck: non-tender, supple Respiratory: + Rhonchi bilaterally. normal air movement Cardiovascular: nl pulses, regular rate and rhythm Gastrointestinal: non-tender, soft, bowel sounds active in all 4 quadrants. Musculoskeletal/extremities: + Muscle wasting. Nl extremities to inspection, motor strength equal bilaterally, no focal deficit. Normal pulses,no cyanosis, no edema. Neurological: Anxious looking. Alert oriented 3,nl speech, nl strength Skin: nl turgor ASSESSMENT/PLAN: Very unfortunate 33-year-old male with AIDS, endocarditis(treated recently), substance abuse, here with intractable nausea, vomiting, diarrhea. 1. Intractable vomiting/diarrhea, likely AIDS defining illness.stable 2. Recurrent Pneumonia in HIV infected patient 3. End- Stage AIDS: DNR/DNI with hospice/comfort focused care. 4. Polysubstance/Meth abuse 5. Chronic anemia 6. Tobacco abuse Patient Condition: Stable Consults , infectious Procedures 05/08/2018. CT abdomen and pelvis. IMPRESSION: 1. Multiple cavitary nodular opacities with underlying air space disease within the lung bases, slightly improved since prior exam. Findings are worrisome for atypical infection versus septic emboli. 2. Limited evaluation secondary to lack of intra-abdominal fat and IV and oral contrast. 3. No gross evidence of bowel obstruction. Stool filled loops of large bowel suggestive of constipation. 4. Hepatosplenomegaly. 5. No gross evidence of free fluid or free air. No gross focal fluid collections. 6. Mild anasarca. Hx of Present Illness 33-year-old male with a history of AIDS, endocarditis, IV drug abuse, substance abuse, nicotine abuse, pneumonia/opportunistic infections, who was discharged AGAINST MEDICAL ADVICE in December 2017, presented with intractable nausea/vomiting/nonbloody diarrhea times 4-day duration. He also reported subjective fevers. Patient denied abdominal pain, loss of consciousness, dizziness, chest pain, palpitation, speech difficulties, vision changes, cough, dysuria, chills or other constitutional symptoms. In the emergency room,Initial labs showed white count 2100, hemoglobin 10.3, hematocrit 32.4, potassium 3.4, AST 49, alkaline phosphatase 159. Normal lactate level. Vital signs temperature 97.5, pulse rate 84, respiratory rate 17, blood pressure 114/86, oxygen saturation 100% on room air. In the ER, patient was given about 2 L normal saline fluid bolus, IV ceftriaxone and Zofran with some improvement in his symptoms. He was also given potassium 40 M EQ in the ER. Hospital Course Very unfortunate 33-year-old male with AIDS, endocarditis(treated recently), substance abuse, here with intractable nausea, vomiting, diarrhea. Patient did not have any acute bowel obstruction or ileus and CT findings. Most likely, his symptoms are likely constellation of symptoms represents AIDS d efining illness. No acute obstruction or other pathologies. Patient was started on a diet which he was able to tolerate. He was continued on supportive care with fluid hydration, [id number] Reglan, PRN Zofran,H2B,Lactobacillus for colon health. Blood and urine cultures negative. Patient was also treated for recurrent pneumonia with Levaquin. He was also given Bactrim, acyclovir prophylaxis. Patient is also noted for Dayami albicans in stool culture and he was continued on fluconazole. He was counseled on cessation of meth abuse. At this time, patient interested in DNR status with continuation of hospice. steelworker met with patient and arrangements had done for outpatient hospice follow-up and patient will be discharged. Approximately 60 minutes was spent on coordinating the discharge on this patient. Patient was seen in collaboration with Dr. Franco [facility] Active Scripts Fluconazole* (Fluconazole*) 200 Mg Tablet, 200 MG PO DAILY for 5 Days, #5 TAB Prov:SKINNER,JEAN-CLAUDE V. GENERAL FORECASTER 05/10/18 Levofloxacin* (Levaquin*) 750 Mg Tablet, 750 MG PO DAILY, #5 TAB Prov:SKINNER,JEAN-CLAUDE V. GENERAL FORECASTER 05/10/18 Famotidine* (Pepcid*) 20 Mg Tablet, 20 MG PO BID, #60 TAB Prov:SKINNER,JEAN-CLAUDE V. GENERAL FORECASTER 05/10/18 Lactobacillus Rhamnosus GG (Culturelle) 1 Each Capsule, 1 CAP PO BID, #60 CAP Prov:JEAN-CLAUDE SKINNER NP 05/10/18 Ondansetron Hcl* (Zofran*) 4 Mg Tablet, 4 MG PO Q6H PRN for NAUSEA AND OR VOMITING, #30 TAB Prov:JEAN-CLAUDE SKINNER V. GENERAL FORECASTER 05/10/18 Nystatin (Nystatin) 100,000 Unit/1 Ml Oral.susp, 5 ML PO QID, #100 ML Prov:JEAN-CLAUDE SKINNER V. GENERAL FORECASTER 05/10/18 Sulfamethoxazole/Trimethoprim (Sulfamethoxazole-Tmp Ds Tablet) 1 Each Tablet, 1 TAB PO DAILY, #30 TAB Prov:JEAN-CLAUDE SKINNER NP 05/10/18 Acyclovir* (Acyclovir*) 400 Mg Tablet, 400 MG PO BID, #60 TAB Prov:JEAN-CLAUDE SKINNER NP 05/10/18 Reported Medications Elviteg/Fe/Emtric/Tenofo Ala (Genvoya Tablet) 1 Each Tablet, 1 TAB PO DAILY 05/08/18 Follow-up Plan Discharge with hospice follow-up. Primary Care Provider Care Physician No Primary JEAN-CLAUDE SKINNER NP May 10, 2018 15:00
[2018-05-10 15:05] VITALS: BP 122/77; PULSE 93; RESP 18
[2018-05-11] MEDS ORDERED: METO5TAB58 PO (09:33)
== END 2018-05-10 15:40 ==
LOC: E/R 06:24 → 2NE 08:37
PROVIDERS: ADMIT Internal Medicine; ATTEND Internal Medicine
DX: R11.2 Nausea with vomiting, unspecified (principal); R19.7 Diarrhea, unspecified; B20 Human immunodeficiency virus [HIV] disease; J18.9 Pneumonia, unspecified organism; D61.818 Other pancytopenia; G40.909 Epilepsy, unspecified, not intractable, without status epilepticus; Z72.0 Tobacco use; B37.0 Candidal stomatitis; B37.81 Candidal esophagitis; F19.10 Other psychoactive substance abuse, uncomplicated; Z66 Do not resuscitate; Z23 Encounter for immunization
CPT/HCPCS: 36415; 71045; 74176; 80048; 80053; 80307; 81001; 83605; 83735; 84100; 84484; 85025; 85610; 85730; 86360; 87040; 87045; 87075; 87081; 87086; 87400; 87536; 90686; 93005; 96365; 96375; J0696; J1170; J1450; J1885; J1956; J2274; J2405; J2765; J3475; J7030; Z7500; Z7502; Z7610; G0378

== ENCOUNTER 2018-05-10 23:37 | Observation (INO) | payer OTHER ==
[~2018-05-10] VITALS: Ht 188 cm; Wt 57.1 kg
[~2018-05-10 23:37] MED LIST: ACYC400T2 PO; ELVI1TAB3 PO; FAMO-96 PO; FLUC200T52 PO; LACT1CAP28 PO; LEVO750T25 PO; METR500T PO; NYST1000 PO; ONDA4TAB8 PO; SULF-182 PO
--- NOTE | 2018-05-11 02:51 | ERD ---
ER Documentation Chief Complaint Chief Complaint Vomiting and diarrhea HPI The patient is a 33-year-old male, presenting with vomiting and diarrhea for the last 2 weeks. He was seen, hospitalized, extend extensive studies and discha rged yesterday around 3 PM. He came back to emergency department because of vomiting and diarrhea. However he is eating in the ER without any difficulty. He denies hematemesis/hematochezia. He denies fever, chills, neck pain, chest pain, dysuria. He is a DNR/DNI/under hospice care. He has history of substance abuse including heroin and amphetamine, tobacco Past medical history: History of endocarditis, HIV, ARDS, personality disorder, seizure disorder ROS All systems reviewed and are negative except as per history of present illness. Medications Home Meds Active Scripts Fluconazole* (Fluconazole*) 200 Mg Tablet, 200 MG PO DAILY for 5 Days, #5 TAB Prov:SKINNER,JEAN-CLAUDE V. TOBACCO STRIPPER HAND 05/10/18 Levofloxacin* (Levaquin*) 750 Mg Tablet, 750 MG PO DAILY, #5 TAB Prov:SKINNERCARROLLA V. TOBACCO STRIPPER HAND 05/10/18 Famotidine* (Pepcid*) 20 Mg Tablet, 20 MG PO BID, #60 TAB Prov:SKINNER,JEAN-CLAUDE V. [employer]AC[employer] STRIPPER HAND 05/10/18 Lactobacillus Rhamnosus GG (Culturelle) 1 Each Capsule, 1 CAP PO BID, #60 CAP Prov:SKINNERJEAN-CLAUDE V. [employer]BACCO STRIPPER HAND 05/10/18 Ondansetron Hcl* (Zofran*) 4 Mg Tablet, 4 MG PO Q6H PRN for NAUSEA AND OR VOMITING, #30 TAB Prov:JEAN-CLAUDE SKINNER V. [employer] STRIP[employer] HAND 05/10/18 Nystatin (Nystatin) 100,000 Unit/1 Ml Oral.susp, 5 ML PO QID, #100 ML Prov:SKINNER,JEAN-CLAUDE V. [employer] STRIP[employer] HAND 05/10/18 Sulfamethoxazole/Trimethoprim (Sulfamethoxazole-Tmp Ds Tablet) 1 Each Tablet, 1 TAB PO DAILY, #30 TAB Prov:SKINNERJEAN-CLAUDE V. [employer]BACCO STRIPPER HAND 05/10/18 Acyclovir* (Acyclovir*) 400 Mg Tablet, 400 MG PO BID, #60 TAB Prov:SKINNERCARROLLA V. TOBACCO STRIPPER HAND 05/10/18 Reported Medications Elviteg/Fe/Emtric/Tenofo Ala (Genvoya Tablet) 1 Each Tablet, 1 TAB PO DAILY 05/08/18 Allergies Allergies: Coded Allergies: acetaminophen (Verified Allergy, Unknown, 05/08/18) hydrocodone (Verified Allergy, Unknown, 05/08/18) Uncoded Allergies: Seafood (Allergy, Unknown, 05/09/18) PMhx/Soc History of Surgery: No Anesthesia Reaction: No (unknown) Hx Neurological Disorder: No Hx Respiratory Disorders: No Hx Cardiac Disorders: Yes (endocarditis) Hx Psychiatric Problems: No Hx Miscellaneous Medical Probl: No Hx Alcohol Use: No Hx Substance Use: No (6 months ago Heroin) Hx Tobacco Use: Yes Physical Exam Vitals Vital Signs Date Temp Pulse Resp B/P (MAP) Pulse Ox O2 O2 Flow FiO2 Time Delivery Rate 05/10/18 98.1 107 20 107/70 98 23:44 (82) Physical Exam Const: No acute distress. Head: Atraumatic. Eyes: Normal Conjunctiva. ENT: Normal External Ears, Nose and Mouth. Neck: Full range of motion. No meningismus. Resp: Clear to auscultation bilaterally. Cardio: Regular rate and rhythm. Abd: Soft, non distended, normal bowel sounds, vague and diffuse lumbar discomfort, no rigidity/rebound or CVA tenderness Skin: No petechiae or rashes. Back: No midline or flank tenderness. Ext: No cyanosis, or edema. Neur: Awake and alert. No focal deficit Psych: Normal Mood and Affect. Result Diagram: 05/11/18 0325 05/11/18 0325 Results 24 hrs Laboratory Tests Test 05/11/18 03:25 White Blood Count 3.5 10^3/ul Red Blood Count 3.25 10^6/ul Hemoglobin 8.6 g/dl Hematocrit 26.8 % Mean Corpuscular Volume 82.5 fl Mean Corpuscular Hemoglobin 26.5 pg Mean Corpuscular Hemoglobin Concent 32.1 g/dl Red Cell Distribution Width 15.7 % Platelet Count 272 10^3/UL Mean Platelet Volume 10.2 fl Immature Granulocytes % 1.400 % Neutrophils % % Lymphocytes % % Monocytes % % Eosinophils % % Basophils % % Nucleated Red Blood Cells % 0.0 /100WBC Immature Granulocytes # 0.050 10^3/ul Neutrophils # 10^3/ul Lymphocytes # 10^3/ul Monocytes # 10^3/ul Eosinophils # 10^3/ul Basophils # 10^3/ul Nucleated Red Blood Cells # 10^3/ul Sodium Level 135 mmol/L Potassium Level 4.0 mmol/L Chloride Level 101 mmol/L Carbon Dioxide Level 24 mmol/L Anion Gap 10 Blood Urea Nitrogen 12 mg/dl Creatinine 0.50 mg/dl Est Glomerular Filtrat Rate mL/min > 60 mL/min Glucose Level 110 mg/dl Calcium Level 8.5 mg/dl Total Bilirubin 0.1 mg/dl Direct Bilirubin 0.00 mg/dl Indirect Bilirubin 0.1 mg/dl Aspartate Amino Transf (AST/SGOT) 45 IU/L Alanine Aminotransferase (ALT/SGPT) 18 IU/L Alkaline Phosphatase 111 IU/L Total Protein 7.5 g/dl Albumin 3.3 g/dl Globulin 4.20 g/dl Albumin/Globulin Ratio 0.78 Lipase 163 U/L Current Medications Medications Dose Sig/Nilesh Start Time Status Last (Trade) Ordered Route PRN Stop Time Admin Dose Reason Admin Sodium 1,000 ml @ Q1H ONCE 05/11/18 DC 05/11/18 Chloride 1,000 mls/hr IV 03:00 03:43 05/11/18 03:59 Ondansetron 4 mg ONCE STAT 05/11/18 DC 05/11/18 HCl (Zofran IV 02:57 03:43 Inj) 05/11/18 02:59 Loperamide 4 mg ONCE ONCE 05/11/18 DC 05/11/18 HCl PO 03:00 03:43 (Imodium Cap) 05/11/18 03:01 10 mg ONCE ONCE 05/11/18 Metoclopramid IV 05:00 e HCl 05/11/18 05:01 (Reglan) Procedures/MDM UDS pending EKG: Read by emergency physician Rate/Rhythm: Normal Sinus Rhythm 86 beats/min QRS, ST, T-waves: No ST elevation, no T inversion, PAC, LAE Impression: Abnormal EKG MEDICAL MAKING DECISION: The patient is a 33-year-old male, presenting with vomiting diarrhea. He has multiple emesis in the emergency department, was treated with 1 L normal saline for acute dehydration, Imodium 4 mg p.o. for diarrhea, Zofran 4 mg IV, Reglan 10 mg for nausea and vomiting The differential diagnoses considered include but are not limited to gastroenteritis, food poisoning, cholelithiasis, cholecystitis, choledocholithiasis, cholangitis, pancreatitis, hepatitis, gastritis, peptic ulcer disease, gastric ulcer, appendicitis, cystitis, diverticulitis, partial small bowel obstruction. Departure Diagnosis: Primary Impression: Vomiting and diarrhea Additional Impressions: Leukopenia Anemia Condition: Stable Comments I discussed the findings with the patient. I discussed the patient with the hospitalist Dr. Umanzor. who was made aware of the lab, the treatment, the patient condition. The patient is admitted to [facility] Disclaimer: Inadvertent spelling and grammatical errors are likely due to EHR/dictation software use and do not reflect on the overall quality of patient care. Also, please note that the electronic time recorded on this note does not necessarily reflect the actual time of the patient encounter. BRITNEY SMITH MD May 11, 2018 02:51
[2018-05-11] MEDS ORDERED: ONDANSETRON 4 MG INJ IV STA (02:57)
[2018-05-11] MEDS ORDERED: LOPERAMIDE 2 MG CAP PO ONE (03:00)
[2018-05-11] MEDS ORDERED: SOD CHLORIDE 0.9% 1,000 ML IV ONE (03:00)
[2018-05-11] MEDS ORDERED: METOCLOPRAMIDE 10 MG INJ IV ONE (05:00)
[2018-05-11] MEDS ORDERED: SOD CHLORIDE 0.9% 1,000 ML IV SCH (05:10)
[2018-05-11] MEDS ORDERED: NACL 0.9% 3 ML SYG IV SCH (05:30)
[2018-05-11] MEDS ORDERED: METOCLOPRAMIDE 10 MG INJ IV PRN (05:30)
[2018-05-11] MEDS ORDERED: ACETAMINOPHEN 325 MG TAB PO PRN (05:30)
[2018-05-11] MEDS ORDERED: ONDANSETRON 4 MG INJ IV PRN (05:30)
[2018-05-11] MEDS ORDERED: LEVOFLOXACIN 750 MG TABLET PO SCH (06:00)
--- NOTE | 2018-05-11 07:24 | HP ---
Date/Time of Note Date/Time of Note DATE: 05/11/18 TIME: 07:24 Assessment/Plan VTE Prophylaxis SCD applied (from Nsg): Yes Pharmacological prophylaxis: NA/contraindicated Pharm contraindication: low risk/ambulating Lines/Catheters IV Catheter Type (from Nrsg): Saline Lock Assessment/Plan Hospital Course This is a 33 male being admitted to the [facility] floor for: #1 intractable nausea and vomiting likely secondary to patient's underlying AIDS infection: At the current time we will put the patient on as needed Zofran, Reglan. PRN Dilaudid for pain at the current time. #2 dehydration: Dry mucous members, normal saline maintenance fluid. #3 recurrent Pneumonia in HIV infected patient: Chest x-ray does show opacities and cavitary lesion that were apparent on the chest CT done before. At the current time we will continue Levaquin that he was already on as an outpatient. #4 end- Stage AIDS: Elevated HIV viral load as well as CD4 count less than 20. At the current time we will continue prophylactic medications of fluconazole, Bactrim, acyclovir. Also continue HAART patient previously was discharged DNR/DNI with hospice/comfort focused care, Will continue this at the current time. Consult case management for possible placement. #5 polysubstance/Meth abuse: Patient denies using any recent IV drugs however on his previous urine drug screen he was positive for amphetamine. Will check ur ine drug screen and ethanol level. #6 chronic anemia: Continue to monitor #7 tobacco abuse: Nicotine patch #8 history of endocarditis: Stable #9 history of oral thrush/candidiasis esophagitis: Continue nystatin #10 pancytopenia: Secondary to underlying HIV/AIDS. 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 Further treatment strategy will be implemented as per the clinical course Result Diagram: 05/11/18 0325 05/11/18 0325 Results 24hrs Laboratory Tests Test 05/11/18 03:25 05/11/18 05:32 White Blood Count 3.5 #L Red Blood Count 3.25 L Hemoglobin 8.6 L Hematocrit 26.8 L Mean Corpuscular Volume 82.5 Mean Corpuscular Hemoglobin 26.5 L Mean Corpuscular Hemoglobin Concent 32.1 Red Cell Distribution Width 15.7 H Platelet Count 272 # Mean Platelet Volume 10.2 Immature Granulocytes % 1.400 H Neutrophils % Lymphocytes % 10.7 L Monocytes % 8.4 Eosinophils % Basophils % 0.0 Nucleated Red Blood Cells % 0.0 Immature Granulocytes # 0.050 H Neutrophils # Lymphocytes # 0.4 L Monocytes # 0.3 Eosinophils # Basophils # 0.0 Nucleated Red Blood Cells # 0.0 Sodium Level 135 Potassium Level 4.0 Chloride Level 101 Carbon Dioxide Level 24 Anion Gap 10 Blood Urea Nitrogen 12 # Creatinine 0.50 L Est Glomerular Filtrat Rate mL/min > 60 Glucose Level 110 Calcium Level 8.5 Total Bilirubin 0.1 L Direct Bilirubin 0.00 Indirect Bilirubin 0.1 Aspartate Amino Transf (AST/SGOT) 45 Alanine Aminotransferase (ALT/SGPT) 18 Alkaline Phosphatase 111 Total Protein 7.5 Albumin 3.3 Globulin 4.20 H Albumin/Globulin Ratio 0.78 Lipase 163 Ethyl Alcohol Level < 10.0 H HPI/ROS Admit Date/Time Admit Date/Time Hx of Present Illness Chief complaint: Nausea and vomiting This is a 33-year-old male who was recently discharged from [facility] with similar symptoms who presents today again with nausea vomiting. Patient was recently admitted and was put on a host of antibiotics given that he was end-stage AIDS and had a low CD4 count making him susceptible to multiple opportunistic infections. Patient was treated and ultimately he was made a DNR DNI and he was to be under hospice care. Patient reports that he continues to h ave nausea and vomiting and that is why he came in. He denies any diarrhea at the current time. Denies any chest pain or shortness of breath. Denies any hematemesis hematochezia or melena. Denies any drug use however his urine drug screen on 8 the patient yesterday Allergies: Seafood, acetaminophen, hydrocodone Medications: See Jun Const: As per HPI Eyes : No pain discharge or redness or change in visual acuity ENT: No pain, sore throat, congestion, congestion, dysphagia or discharge Respiratory: No shortness of breath, cough, sputum, wheezing, or pleuritic pain Cardiovascular: No chest pain, palpitation, PND, or edema GI : As per HPI Genitourinary: No dysuria, hematuria, flank pain , discharge or CVA tenderness Musculoskeletal: No joint pain, back pain, neck pain, restricted range of motion in neck or joints Skin: No rash, bruising or hives Neuro: No headache, dizziness, syncope, seizure, focal weakness Endocrine: No polyuria, polydipsia, temperature intolerance Psych: No hallucination, depression, anxiety or suicidal ideation PMH/Family/Social Past Medical History AIDS, endocarditis, IV drug abuse, substance abuse, nicotine abuse, pneumonia/opportunistic infections Medications Current Medications Sodium Chloride 1,000 ml @ 100 mls/hr Q10H IV Last administered on 05/11/18at 06:04; Admin Dose 100 MLS/HR; Start 05/11/18 at 05:10 IV Flush (NS 3 ml) 3 ml PER PROTOCOL IV ; Start 05/11/18 at 05:30 Ondansetron HCl (Zofran Inj) 4 mg Q6H PRN IV NAUSEA AND/OR VOMITING; Start 05/11/18 at 05:30 Metoclopramide HCl (Reglan) 10 mg Q6H PRN IV NAUSEA AND/OR VOMITING; Start 05/11/18 at 05:30 Acetaminophen (Tylenol Tab) 650 mg Q6H PRN PO PAIN LEVEL 1-3 OR FEVER; Start 05/11/18 at 05:30 Acyclovir (Zovirax) 400 mg BID PO ; Start 05/11/18 at 09:00 Elvitegravir/ Cobicis/Emtricit/ Tenof (Genvoya Tablet) 1 each DAILY PO ; Start 05/11/18 at 09:00 Famotidine (Pepcid) 20 mg BID PO ; Start 05/11/18 at 09:00 Fluconazole (Diflucan) 200 mg DAILY PO ; Start 05/11/18 at 09:00 Lactobacillus Acidophilus/ Rhamnosus (Culturelle) 1 cap BID PO ; Start 05/11/18 at 09:00 Levofloxacin (Levaquin) 750 mg DAILY@0600 PO Last administered on 05/11/18at 06:54; Admin Dose 750 MG; Start 05/11/18 at 06:00 Nystatin (Nystatin Susp) 5 ml QID PO ; Start 05/11/18 at 09:00 Trimethoprim/ Sulfamethoxazole (Bactrim (Ds)) 1 tab DAILY PO ; Start 05/11/18 at 09:00 Coded Allergies: acetaminophen (Verified Allergy, Unknown, 05/08/18) hydrocodone (Verified Allergy, Unknown, 05/08/18) Uncoded Allergies: Seafood (Allergy, Unknown, 05/09/18) Past Surgical History Past Surgical Hx: no surgical history Family History Significant Family History: no pertinent family hx Social History History of polysubstance abuse, IV drug use Smoking Status: Current every day smoker Exam/Review of Systems Vital Signs Vitals Vital Signs Date Temp Pulse Resp B/P (MAP) Pulse Ox O2 O2 Flow FiO2 Time Delivery Rate 05/11/18 70 18 103/75 100 Room Air 07:17 (84) 05/11/18 97.2 06:30 Intake and Output 05/10/18 05/10/18 05/11/18 1515:00 23:00 07:00 IntakeIntake Total 1000 ml BalanceBalance 1000 ml Exam Exam General: Patient currently lying in bed does not appear to be in acute distress, he does appear lethargic HEENT: Atraumatic, normocephalic. The pupils are equal, round and reactive. Extraocular motor are intact, mucous membranes dry Neck: Supple with full range of motion. No rigidity or meningismus Chest: Nontender Lungs: Clear to auscultation bilaterally no crackles rales or wheezing Heart: Normal S1-S2, Regular rhythm and rate. Abdomen: Soft, diffuse abdominal tenderness to palpation, no rigidity or rebound Extremities: Normal to inspection, no edema no cyanosis Neurologic: Normal mental status, speech normal, cranial nerves II through XII a re intact, motor and sensory are intact, Additional Comments PROCEDURE: XR Chest. CLINICAL INDICATION: Pulmonary disorder not otherwise specified. HIV. TECHNIQUE: PA and Lateral views of the chest were obtained. COMPARISON: SD CR CHEST 02/05/2018; SD CR CHEST 01/27/2018; SD DX CHEST 11/07/2017; SD DX CHEST 11/06/2017; CR CHEST 11/05/2017 FINDINGS: There is heterogeneous opacity in the bilateral lung bases. There is a small cavitary lesion within the right lung base. No definite effusion or evidence of a pneumothorax. Cardiac silhouette and mediastinal contours are unremarkable. Pulmonary vasculature appears normal. Regional bones are unremarkable. IMPRESSION: Subtle heterogeneous coarse bibasilar opacities and small cavitary lesion correlating with infiltrates demonstrated on recent CT, aeration not significantly changed. RPTAT: [facility] Physician Marilu Date Time Electronically viewed and signed by Juanita Mas Physician on 05/11/2018 06:32 xB/ CC: NITO CARRASQUILLO [id number] NITO CARRASQUILLO May 11, 2018 07:24
[2018-05-11] MEDS ORDERED: HYDROmorphONE 0.5 MG/0.5 ML SYG IV PRN (08:00)
[2018-05-11 08:03] VITALS: Ht 188 cm; Wt 57.1 kg
[2018-05-11 08:44] VITALS: BP 102/71; PULSE 73; RESP 18
[2018-05-11] MEDS ORDERED: FLUCONAZOLE 200 MG TAB PO SCH (09:00)
[2018-05-11] MEDS ORDERED: FAMOTIDINE 20 MG TAB PO SCH (09:00)
[2018-05-11] MEDS ORDERED: ELVITEG/COBI/EMTRIC/TENOFO ALA 1 EACH TABLET PO SCH (09:00)
[2018-05-11] MEDS ORDERED: LACTOBACILLUS RHAMNOSUS CAP PO SCH (09:00)
[2018-05-11] MEDS ORDERED: TRIMETHOPRIM/SULFAMETHOX (DS) TAB PO SCH (09:00)
[2018-05-11] MEDS ORDERED: NYSTATIN SUSP 5 ML CUP PO SCH (09:00)
[2018-05-11] MEDS ORDERED: ACYCLOVIR 400 MG TAB PO SCH (09:00)
[2018-05-11] MEDS ORDERED: GUAIFENESIN/DM 5ML CUP PO PRN (09:30)
[2018-05-11] MEDS ORDERED: METO5TAB58 PO (09:33)
--- NOTE | 2018-05-11 09:33 | PDOCDIS ---
Discharge Instructions CONDITION [id number] Patient Condition: [id number] Stable HOME CARE INSTRUCTIONS: [id number] Diet Instructions: [id number] Regular FOLLOW UP/APPOINTMENTS Follow-up Plan Follow-up With primary care physician and hospice agency. JEAN-CLAUDE SKINNER NP May 11, 2018 09:33
--- NOTE | 2018-05-11 09:38 | DS ---
Date/Time of Note Date/Time of Note DATE: 05/11/18 TIME: 09:37 Discharge Summary Admission/Discharge Info Admit Date/Time May 11, 2018 at 05:17 Discharge Date/Time Discharge Diagnosis 1. Intractable vomiting/diarrhea, likely AIDS defining illness.stable 2. Recurrent Pneumonia in HIV infected patient 3. End- Stage AIDS: DNR/DNI with hospice/comfort focused care. 4. Polysubstance/Meth abuse 5. Chronic anemia 6. Tobacco abuse 7. IV Opiate seeker 8. 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 Patient was discharged with hospice follow-up, however he decided to come back the same day after discharge reporting his symptoms persist. Patient reported that he drank a [employer] coffee which he threw up. Patient continues to take meth. In the ER, or in the hospital, patient with no nausea or vomiting and he is been tolerating diet including a regular diet. Patient's abdominal exam is benign. He kept asking for Dilaudid. At this time, there is no indication to keep patient in-house as he had a complete workup and patient was discharged with hospice follow-up. Patient with no symptoms. Recommend addition of Reglan with meals this time. drywall worker to see patient and discharge with hospice follow-up. Approximately 60 minutes was spent on coordinating the discharge on this patient. Patient was seen in collaboration with Dr. Deluna. Home Meds Active Scripts Metoclopramide* (Reglan*) 5 Mg Tablet, 5 MG PO AC MEALS, #21 TAB Prov:SKINNER,JEAN-CLAUDE V. MANAGER CONTACT 05/11/18 Fluconazole* (Fluconazole*) 200 Mg Tablet, 200 MG PO DAILY for 5 Days, #5 TAB Prov:SKINNER,JEAN-CLAUDE V. MANAGER CONTACT 05/10/18 Levofloxacin* (Levaquin*) 750 Mg Tablet, 750 MG PO DAILY, #5 TAB Prov:SKINNER,JEAN-CLAUDE V. MANAGER CONTACT 05/10/18 Famotidine* (Pepcid*) 20 Mg Tablet, 20 MG PO BID, #60 TAB Prov:SKINNER,JEAN-CLAUDE V. MANAGER CONTACT 05/10/18 Lactobacillus Rhamnosus GG (Culturelle) 1 Each Capsule, 1 CAP PO BID, #60 CAP Prov:SKINNER,JEAN-CLAUDE V. MANAGER CONTACT 05/10/18 Ondansetron Hcl* (Zofran*) 4 Mg Tablet, 4 MG PO Q6H PRN for NAUSEA AND OR VOMITING, #30 TAB Prov:SKINNER,JEAN-CLAUDE V. MANAGER CONTACT 05/10/18 Nystatin (Nystatin) 100,000 Unit/1 Ml Oral.susp, 5 ML PO QID, #100 ML Prov:SKINNER,JEAN-CLAUDE V. MANAGER CONTACT 05/10/18 Sulfamethoxazole/Trimethoprim (Sulfamethoxazole-Tmp Ds Tablet) 1 Each Tablet, 1 TAB PO DAILY, #30 TAB Prov:SKINNER,JEAN-CLAUDE V. MANAGER CONTACT 05/10/18 Acyclovir* (Acyclovir*) 400 Mg Tablet, 400 MG PO BID, #60 TAB Prov:SKINNERCARROLLA V. MANAGER CONTACT 05/10/18 Reported Medications Elviteg/Fe/Emtric/Tenofo Ala (Genvoya Tablet) 1 Each Tablet, 1 TAB PO DAILY 05/08/18 Follow-up Plan Follow-up With primary care physician and hospice agency. Primary Care Provider Care Physician No Primary Pending Labs Laboratory Tests Test 05/11/18 03:25 05/11/18 05:32 White Blood Count 3.5 10^3/ul (4.8-10.8) Red Blood Count 3.25 10^6/ul (4.70-6.10) Hemoglobin 8.6 g/dl (14.0-18.0) Hematocrit 26.8 % (42.0-52.0) Mean Corpuscular Volume 82.5 fl (82.0-101.0) Mean Corpuscular Hemoglobin 26.5 pg (29.0-33.0) Mean Corpuscular 32.1 g/dl (32.0-37.0) Hemoglobin Concent Red Cell Distribution Width 15.7 % (11.5-14.5) Platelet Count 272 10^3/UL (140-415) Mean Platelet Volume 10.2 fl (7.4-10.4) Immature Granulocytes % 1.400 % (0.001-0.429) Neutrophils % % (39.0-77.0) Lymphocytes % 10.7 % (15.0-51.0) Monocytes % 8.4 % (0.0-11.0) Eosinophils % % (0.0-7.0) Basophils % 0.0 % (0.0-2.0) Nucleated Red Blood Cells % 0.0 /100WBC (0.0-0.0) Immature Granulocytes # 0.050 10^3/ul (0.0-0.031) Neutrophils # 10^3/ul (1.6-7.5) Lymphocytes # 0.4 10^3/ul (0.8-2.9) Monocytes # 0.3 10^3/ul (0.3-0.9) Eosinophils # 10^3/ul (0.0-0.5) Basophils # 0.0 10^3/ul (0.0-0.1) Nucleated Red Blood Cells # 0.0 10^3/ul (0.0-0.0) Sodium Level 135 mmol/L (135-144) Potassium Level 4.0 mmol/L (3.5-5.1) Chloride Level 101 mmol/L (97-110) Carbon Dioxide Level 24 mmol/L (21-31) Anion Gap 10 (5-13) Blood Urea Nitrogen 12 mg/dl (7-20) Creatinine 0.50 mg/dl (0.61-1.24) Est Glomerular Filtrat > 60 mL/min (>60) Rate mL/min Glucose Level 110 mg/dl (70-220) Calcium Level 8.5 mg/dl (8.4-10.2) Total Bilirubin 0.1 mg/dl (0.2-1.3) Direct Bilirubin 0.00 mg/dl (0.00-0.20) Indirect Bilirubin 0.1 mg/dl (0-1.1) Aspartate Amino Transf (AST/SGOT) 45 IU/L (15-46) Alanine 18 IU/L (13-69) Aminotransferase (ALT/SGPT) Alkaline Phosphatase 111 IU/L (42-121) Total Protein 7.5 g/dl (6.1-8.1) Albumin 3.3 g/dl (3.3-4.9) Globulin 4.20 g/dl (1.3-3.2) Albumin/Globulin Ratio 0.78 Lipase 163 U/L (23-300) Ethyl Alcohol Level < 10.0 mg/dl (0-0) JEAN-CLAUDE SKINNER V. MANAGER CONTACT May 11, 2018 09:38
[2018-05-11] MEDS ORDERED: NICOTINE (21 MG/24 HR) PATCH TRANSDERM SCH (10:00)
[2018-05-11] MEDS ORDERED: METOCLOPRAMIDE 5 MG TAB PO SCH (11:30)
== END 2018-05-11 11:06 | disposition home or self-care (01) ==
LOC: E/R 23:37 → PP2 05-11 05:17
PROVIDERS: ADMIT Family Medicine; ATTEND Family Medicine
DX: R11.11 Vomiting without nausea (principal); J18.9 Pneumonia, unspecified organism; I12.0 Hypertensive chronic kidney disease with stage 5 chronic kidney disease or end stage renal disease; N18.6 End stage renal disease; Z99.2 Dependence on renal dialysis; Z66 Do not resuscitate; F15.20 Other stimulant dependence, uncomplicated; D64.9 Anemia, unspecified; F17.200 Nicotine dependence, unspecified, uncomplicated; Z91.19 Patient's noncompliance with other medical treatment and regimen
CPT/HCPCS: 36415; 71045; 80053; 80307; 83690; 85025; 93005; 96361; 96374; J1170; J2405; J2765; J7030; Z7500; Z7502; Z7610; G0378